=== PATIENT | male | born 1955 | race Caucasian/White ===

== ENCOUNTER → 2017-04-28 | Outpatient (CLI) | payer OTHER ==
[~2017-04-28] MED LIST: ASPI-496 PO; BUPR150T13 PO; CLON-364 PO; DOCU-131 PO; NIAC500T PO; OXYC1TAB7 PO; RAMI5CAP35 PO
== END | disposition home or self-care (01) ==
LOC: CFH 07:15
PROVIDERS: ATTEND Physical Medicine & Rehabilitation Pain Medicine
DX: M48.56XA Collapsed vertebra, not elsewhere classified, lumbar region, initial encounter for fracture (principal); M48.061 Spinal stenosis, lumbar region without neurogenic claudication; G96.19 Other disorders of meninges, not elsewhere classified; D18.09 Hemangioma of other sites; M47.896 Other spondylosis, lumbar region; M47.897 Other spondylosis, lumbosacral region
CPT/HCPCS: 72148